=== PATIENT | male | born 1965 | race Caucasian/White ===

== ENCOUNTER → 2024-08-10 08:12 | Outpatient (REF) | payer BC, SELFPAY | LOC: RCS 08:12 | PROVIDERS: ATTENDING PHYSICIAN Internal Medicine Cardiovascular Disease; FAMILY PHYSICIAN Family Medicine | DX: I42.9 Cardiomyopathy, unspecified (principal) | CPT/HCPCS: 93306 ==

== ENCOUNTER 2025-03-01 17:47 | Emergency (ER) | payer BC, SELFPAY ==
[2025-03-01 17:58] VITALS: BP 139/97
[2025-03-01 18:24] LABS: Urine Albumin 1+ (Neg - Trace); Urine Bilirubin Negative (Negative); Urine Character Clear (Clear); Urine Color Yellow; Urine Glucose 4+ (Negative); Urine Ketone 2+ (Negative); Urine Leukocyte Negative (Negative); Urine Nitrite Negative (Negative); Urine Occult Blood 1+ (Negative); Urine Specific Gravity 1.015 (<1.030); Urine Urobilinogen Negative (Neg - 1+)
[2025-03-01 18:25] LABS: % Basophils 0.2 % (0-2); % Eosinophils 0.2 % (0-6); % Immature Granulocytes 0.4 % (0-0.5); % Lymphocytes 7.8 % (20.5-51.1); % Neutrophils 81.4 % (42.2-75.2); Absolute Immature Granulocytes 0.1 10^3/uL (0-0.05); Absolute Lymphocytes 1.1 10^3/uL (1.2-3.4); Absolute Monocytes 1.4 10^3/uL (0.1-0.6); Absolute Neutrophils 11.4 10^3/uL (1.4-6.5); Hematocrit 40.6 % (39.0-52.0); Hemoglobin 13.3 g/dL (13.0-18.0); Mean Corp Hgb Conc. 32.8 g/dL (33.0-37.0); Mean Corpuscular Hgb 29.8 pg (27.0-31.0); Mean Platelet Volume 9.2 fL (7.4-10.4); Nucleated Red Blood Cells % 0 % (-); Platelet Count 246 10^3/uL (130-400); Red Blood Cell Count 4.46 10^6/uL (4.70-6.10); Red Cell Dist. Width 12.9 % (11.5-14.5); White Blood Cell Count 13.9 10^3/uL (4.8-10.8)
[2025-03-01 18:43] LABS: ALT (SGPT) 55 U/L (0-50); AST (SGOT) 27 U/L (17-59); Alkaline Phosphatase 106 U/L (38-126); Blood Urea Nitrogen 18 mg/dl (9-20); Calcium 9.7 mg/dl (8.4-10.2); Carbon Dioxide 26 mmol/L (22-30); Glucose 101 mg/dl (70-99); Lipase 151 U/L (23-300); Total Bilirubin 0.8 mg/dl (0.2-1.3); eGFR > 60.00
[2025-03-01 18:50] LABS: Chloride 105 mmol/L (98-107); Potassium 4.4 mmol/L (3.5-5.1); Sodium 140 mmol/L (135-145)
[2025-03-01 19:58] LABS: Urine White Cell 0-2 /HPF (0-5)
[2025-03-01 20:08] VITALS: BMI 39.2
[2025-03-01] MEDS: NSS 1000 IV (20:26)
[2025-03-01] MEDS: MORPHINE SULFATE 4 MG IV (20:27)
[2025-03-01] MEDS: ZOFRAN 4 MG IV (20:27)
--- NOTE | 2025-03-01 20:37 | ED.GENMED ---
History of Present Illness
General
Chief Complaint: Abdominal Pain
Source: patient
Exam Limitations: none
Time Seen by Provider: 03/01/25 19:38
Nursing documentation reviewed up to this point in time: agreed with
History of Present Illness
History of Present Illness:
Patient is a 59-year-old male with history hypertension, heart block with pacemaker, CHF presenting to the emergency department for evaluation of lower abdominal pain. Patient states symptoms initially started 3 days ago and have been gradually
worsening. Pain is most significant in left lower abdomen although seems to be now radiating up the right lower abdomen. Patient denies any radiation into the back or groin. He has no testicular pain. Pain is worse with movement. Patient states
he is having multiple episodes of loose nonbloody stools daily over the past few days. He also has been having fevers most recently to 101 prior to arrival in emergency department.
Patient denies any associated nausea, vomiting, or dysuria.
Patient has never had a colonoscopy.
Past History
Past History
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
ED Past Surgical History: Orthopedic and Urological
Social History
Tobacco: Former smoker
Alcohol: Occasional
Drug: None
Personal:
Living: with family
Employment: Employed
Family History
Family History: Diabetes and CAD
Review of Systems
Review of Systems
Allergies reviewed?: Yes
All Other Systems: ROS reviewed and negative except as documented in HPI and ROS
Phy Exam
Physical Exam
Physical Exam:
Vitals: Patient's vital signs are stable. Afebrile on arrival
General: Patient is in no apparent distress. Nontoxic appearing
Skin: Warm and dry, no rashes or lesions
Head: Normocephalic, atraumatic
Eyes: Sclera nonicteric. EOMs intact. No nystagmus.
Throat: Protecting airway
Neck: Normal ROM, no cervical spine tenderness, no meningismus
Cardiac: Regular rate and rhythm, no murmurs.
Pulm: Normal respiratory effort, no wheezes, rales, rhonchi heard on exam.
Abdomen: Abdomen soft. Moderate abdominal tenderness in left lower quadrant without rebound tenderness or guarding. No CVA tenderness.
Extremities: No evidence of cyanosis or edema. Palpable DP pulses bilaterally
Neuro: AAOx3. Grossly intact.
Psychiatric: Normal affect.
Course
Orders/Labs/Results
Orders:
Orders
03/01/25 18:11
Complete Blood Count/With Diff Urgent
Comprehensive Metabolic Panel Urgent
Lipase Urgent
Urinalysis Reflex To Culture Urgent
Date Specimen was Collected: 03/01/25
Time Specimen was Collected: 18:01
Urine Microscopic Reflex Cult Urgent
03/01/25 19:47
CT Abd/pelvis W Iv Cont Urgent
Comment:
Reason For Exam: LLQ pain, fever
0.9% Sodium Chloride 1000 ml [Nss] 1,000 ml IV BOLUS
Morphine Sulfate 4 mg IV NOW STA
Ondansetron Injectable [Zofran] 4 mg IV NOW STA
03/01/25 21:55
Amoxicillin 875 mg/Clav 125 mg [Augmentin 875 mg/125 mg] 1 tablet PO NOW STA
Abnormal Lab Results
03/01/25
18:11
WBC 13.9 H 10^3/uL
(4.8-10.8)
RBC 4.46 L 10^6/uL
(4.70-6.10)
MCHC 32.8 L g/dL
(33.0-37.0)
Abs Immat Gran (auto) 0.1 H 10^3/uL
(0-0.05)
Absolute Neuts (auto) 11.4 H 10^3/uL
(1.4-6.5)
Absolute Lymphs (auto) 1.1 L 10^3/uL
(1.2-3.4)
Absolute Monos (auto) 1.4 H 10^3/uL
(0.1-0.6)
Neutrophils % 81.4 H %
(42.2-75.2)
Lymphocytes % 7.8 L %
(20.5-51.1)
Monocytes % 10.0 H %
(1.7-9.3)
Glucose 101 H mg/dl
(70-99)
ALT 55 H U/L
(0-50)
Urine Ketones 2+ A
(Negative)
Ur Occult Blood Reflex 1+ A
(Negative)
Urine RBC 3-6 A /HPF
(0-2)
Urine Glucose 4+ A
(Negative)
Urine Albumin (Reflex) 1+ A
(Neg - Trace)
03/01/25 18:11
03/01/25 18:11
Vital Signs
Initial and Last Documented VS:
Initial Vital Signs
Temp Pulse Resp BP Pulse Ox
98.8 F 96 16 139/97 98
03/01/25 17:58 03/01/25 17:58 03/01/25 17:58 03/01/25 17:58 03/01/25 17:58
Last Documented Vital Signs
Temp Pulse Resp BP Pulse Ox
98.8 F 85 24 113/57 95
03/01/25 17:58 03/01/25 22:15 03/01/25 22:15 03/01/25 22:00 03/01/25 22:15
MDM/Problems Addressed
Differential Diagnosis Includes:
Not limited to: Uncomplicated diverticulitis, complicated diverticulitis including bowel perforation or intra-abdominal abscess, appendicitis, kidney stone, pyelonephritis, etc.
MDM/Problems Addressed:
Patient is a 59-year-old male presenting with 3 days of lower abdominal pain and loose stools. He has had fevers at home. No nausea, vomiting, or urinary symptoms. Vitals and physical exam as above. Labs are sent in triage significant for
leukocytosis of 13.9 with left shift. Chemistry without clinically significant abnormalities base is normal. Urine shows no evidence of infection although a few RBCs. Given history of fever with leukocytosis and tenderness on abdominal
exam�concern for intra-abdominal infectious process such as diverticulitis. Appendicitis would also be on differential. Lower suspicion for nephrolithiasis. Will give IV fluids and pain control. Will check CT scan abdomen/pelvis with IV
contrast. Will closely monitor and reassess.
Update: CT scan shows acute uncomplicated diverticulitis of the distal descending/proximal sigmoid colon. Discussed findings with patient. There is no evidence of perforation or abscess. Patient's pain is well-controlled in the emergency
department. He remains well-appearing with normal vital signs. Did repeat temp which was 98.7F. Discussed discharge home with p.o. antibiotics versus admission for IV antibiotics and pain control with patient. Given patient is afebrile with
well-managed pain and evidence of diverticulitis on imaging�feel trial management with p.o. antibiotics at home is a reasonable option. Will start 10-day course of Augmentin. Patient given first dose in emergency department today. Advise clear
liquid diet, staying well-hydrated, primary care follow-up. Information given for GI follow-up, as well. Strict return discussed. All questions answered�patient comfortable with plan.
Chronic conditions affecting care:
Hypertension
Acute Exacerbation and/or Progression of Chronic Illness:
Acutely hypertensive, acute diverticulitis
*Radiology
Radiology exam reviewed: radiology read reviewed (Acute uncomplicated diverticulitis)
*Pulse Oximetry
Patient hypoxic: no
*EKG
Interpreted by ED Provider?: NA
*Seamer Operator Interpretation
Rate: Seamer Operator- N/A
*Critical Care Note
Total Time (30-74mins, 75-104mins- exclusive of procedures): Not Applicable
ED Attending Note
-
Portions of this chart may have been created with voice recognition software.� Occasional wrong word or��sound alike� substitutions may have occurred due to the inherent limitations of voice recognition software.
Discharge Plan
Departure
Patient Disposition: Home (Routine Discharge)
Date of Disposition: 03/01/25
Time of Disposition: 21:55
Patient with high blood pressure during this ER visit?: Yes
Condition: Good
Covid-19: Not Applicable
Discharge Problem:
Acute diverticulitis
Instructions: Clear Liquid Diet, Diverticulitis (DC), Low-fiber diet, BLOOD PRESSURE
Prescriptions:
New
amoxicillin-pot clavulanate 875-125 mg tablet
1 tab PO BID 10 Days Qty: 20 0RF
hydrocodone-acetaminophen 5-300 mg tablet
1 tab PO Q6H PRN (Reason: Pain) Qty: 5 0RF
No Action
lisinopril 5 MG tablet
5 mg PO DAILY
cyanocobalamin (vitamin B-12) 1,000 MCG tablet
1,000 mcg PO DAILY
multivitamin with folic acid [Tab-A-Rey] 1 TABLET tablet
1 tab PO DAILY
carvedilol 6.25 MG tablet
6.25 mg PO BID Qty: 60 0RF
aspirin 325 MG tablet
325 mg PO DAILY 0RF
spironolactone 12.5 MG tablet
12.5 mg PO DAILY Qty: 30 0RF
furosemide 40 MG tablet
40 mg PO DAILY Qty: 30 0RF
allopurinol 100 MG tablet
100 mg PO DAILY
Magnesium
1 tab PO DAILY
methylprednisolone [Medrol (Bob)] 4 MG tablets,dose pack
4 tab PO . DIRECT Qty: 1 0RF
Referrals:
Azael Proctor DO [Family Provider] - Follow up in 2-3 days
Barb Salas DO [Active] - Call in 1-3 days for appt
Activity Restrictions/Additional Instructions:
Return to the emergency department with any fevers, worsening abdominal pain, intractable nausea/vomiting, intractable pain, worsening in current symptoms, or any other
-As discussed - your CT scan showed acute uncomplicated diverticulitis. A prescription for antibiotics has been sent to your pharmacy. You were given your first dose tonight in the emergency department and should resume this prescription in the
morning. You should take this twice a day for the next 10 days. Is important that you complete the full course of this medication.
-You can take Tylenol and Motrin as needed for pain. For intractable pain�a few tablets of Vicodin have been sent to your pharmacy. These will cause drowsiness you should not take prior to driving.
-As discussed - you should follow a clear liquid diet for the next few days then slowly advance to low fiber.
- There were also 2 incidental findings noted on your CT scan including gallstones and a cyst on your right kidney. You should have these followed up with your primary care to determine if further imaging is needed
- Follow-up with primary care later this week to ensure symptoms are improving/for further evaluation. You should make an appoint with a GI doctor for further evaluation, as well. Contact information has been provided for you above.
Monitor your symptoms closely and return to the emergency department with any acute worsening/new symptoms or any other concerns.
Interventions
Interventions:
*Risk Screen - Suicide Last Done: 03/01/25 17:58
*General Assessment Last Done: 03/01/25 20:08
*Neglect/Abuse Screening Last Done: 03/01/25 17:58
*ED- Fall Risk Assessment Last Done: 03/01/25 20:08
*ED COVID-19 Vaccine History Last Done: 03/01/25 20:08
*Nursing Disposition Last Done: 03/01/25 22:35
WW-Ijwjzn-Tldivyjrzn Assessment Last Done: 03/01/25 20:08
Discharge Date and Time
Discharge Date/Time: 03/01/25 22:37
Print Language: NEPALESE
[2025-03-01 20:39] VITALS: BP 134/73
[2025-03-01 21:14] VITALS: BP 112/67
[2025-03-01 22:00] VITALS: BP 113/57
[2025-03-01] MEDS: AUGMENTIN 875 MG/125 MG 1 TABLET PO (22:24)
== END 2025-03-01 22:37 | disposition home or self-care (01) ==
LOC: EMR 17:47
PROVIDERS: EMERGENCY PHYSICIAN Student in an Organized Health Care Education/Training Program; FAMILY PHYSICIAN Family Medicine
DX: K57.32 Diverticulitis of large intestine without perforation or abscess without bleeding (principal); I11.0 Hypertensive heart disease with heart failure; I50.9 Heart failure, unspecified; I44.2 Atrioventricular block, complete; G47.30 Sleep apnea, unspecified; M10.9 Gout, unspecified; Z95.0 Presence of cardiac pacemaker; Z87.442 Personal history of urinary calculi; Z87.891 Personal history of nicotine dependence
CPT/HCPCS: 99284; 96375; 96361; 96374; 74177; 80053; 81003; 81015; 83690; 85025; Q9967

== ENCOUNTER → 2025-08-20 08:03 | Outpatient (REF) | payer BC, SELFPAY | LOC: RCS 08:03 | PROVIDERS: ATTENDING PHYSICIAN Internal Medicine Cardiovascular Disease; FAMILY PHYSICIAN Family Medicine | DX: I42.9 Cardiomyopathy, unspecified (principal) | CPT/HCPCS: 93306 ==